=== PATIENT | female | born 1960 | race Caucasian/White ===

== ENCOUNTER 2016-07-13 19:55 | Emergency (ER) | payer OTHER ==
[~2016-07-13] VITALS: Ht 162.6 cm; Wt 90.9 kg
[~2016-07-13 19:55] MED LIST: WARF1TAB6 PO; WARF2.5T82 PO
[2016-07-13 20:04] VITALS: BP 191/99; PULSE 90; RESP 16; O2SAT 100
[2016-07-13 20:22] VITALS: BP 156/56; PULSE 80; RESP 14; O2SAT 100
[2016-07-13 20:29] LABS: BASOPHILS % (AUTO) 0.7 % (0-3); EOSINOPHILS % (AUTO) 3.2 % (0-5); MONOCYTES % (AUTO) 7.8 % (4-12); Mean Corpuscular Hemoglobin 27.5 pg (27.0-35.0); Mean Corpuscular Volume 83.6 fL (81-100); Platelet Count 279 bil/L (150-400)
[2016-07-13 20:58] LABS: TROPONIN T < 0.010 ug/L (0.0-0.011)
--- NOTE | 2016-07-13 21:04 | ED.REPORT ---
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 She also reports swelling of the bilateral lower extremities noticed today. Pain is different from that associated with her prior PE. Associated symptom of dyspnea on exertion. Patient denies nausea, vomiting, and diaphoresis. Nursing Notes Stated Complaint: SWOLLEN ANKLES, SLIGHT CHEST PAIN Chief Complaint: Chest Pain Nursing Notes Reviewed: Yes Allergies: Coded Allergies: No Known Allergies (Verified Allergy, Unknown, 07/13/16) Scheduled Famotidine (Pepcid) 20 Mg Tablet 20 MG PO BID Warfarin Sodium (Warfarin Sodium) 1 Mg Tablet 1.25 MG PO SAT,SAT,SAT Warfarin Sodium (Warfarin Sodium) 2.5 Mg Tablet 2.5 MG PO ,,,SAT General Time Seen by MD: 21:04 Chief Complaint Chest pain Hx Obtained From: Patient Arrived By: Walk-in Sudden in Onset?: No Onset Occurred: 1 week ago Symptom Duration: Since onset Location: : Substernal Quality: Aching Severity: Current: Moderate Severity: Maximum: Moderate Associated with: Reports: Shortness of Breath, Denies: Cough, productive, Diaphoresis, Nausea, Vomiting Context Related History: Reports: Pulmonary embolism Similar Sx Previous: Yes Past Medical History Past Medical History Sleep apnea on CPAP DVT PE Reports: GERD Past Surgical History None Smoking History Never Smoker Social History Alcohol Use: 1-3 per week Review of Systems Constitutional: Denies: Chills, Fever Respiratory: Reports: Dyspnea on exertion, Shortness of breath, Denies: Non-productive cough Cardiovascular: Reports: Chest pain GI: Denies: Nausea, Vomiting Musculoskeletal: Reports: Extremity swelling (Lower, bilateral) Skin: Reports Diaphoresis Complete sys rev & neg: except as marked. Physical Exam Initial Vital Signs Vital Signs (First) Date Time Temp Pulse Resp B/P Pulse Ox O2 Delivery O2 Flow Rate FiO2 07/13/16 20:04 36.0 90 16 191/99 100 Room Air Initial VS: Reviewed Head / Eyes: Atraumatic, Normocephalic Neck: Supple, Non-tender, Full range of motion Skin: Warm, Dry, No cyanosis Neurologic: Alert, Oriented, Nonfocal General/Constitutional: Awake, Alert, No acute distress, Well appearing, Well developed Respiratory / Chest: Breath sounds NL, Breath sounds = bilat, No respiratory distress, No rales, No rhonchi, No wheezing, No stridor, No chest tenderness Cardiovascular: Heart rate NL, Regular rhythm, Heart sounds NL, No murmurs, Peripheral circulation NL, Pulses = bilaterally, No gross BP differential Lower Ext Edema: Positive: Bilateral 1+ Abdomen: Soft, Non-tender, No guarding, No rebound, No distention Interpretation & Diagnostics Lab Results Interpretation Result Diagram: 07/13/16201907/13/162019 Test 07/13/16 20:20 07/13/16 21:40 White Blood Count 8.4th/mm3 (3.8-10.1) Red Blood Count 5.05mil/mm3 (3.90-5.20) Hemoglobin 13.9g/dL (12.0-15.6) Hematocrit 42.2% (35.0-46.0) Mean Corpuscular Volume 83.6fL (81-100) Mean Corpuscular Hemoglobin 27.5pg (27.0-35.0) Mean Corpuscular Hemoglobin Concent 32.9% (32.0-37.0) Red Cell Distribution Width 13.4% (12.3-15.4) Platelet Count 279bil/L (150-400) Neutrophils (%) (Auto) 51.0% (40-74) Lymphocytes (%) (Auto) 37.2% (14-46) Monocytes (%) (Auto) 7.8% (4-12) Eosinophils (%) (Auto) 3.2% (0-5) Basophils (%) (Auto) 0.7% (0-3) Prothrombin Time 19.6sec (8.1-12.5) Prothromb Time International Ratio 1.81ratio Sodium Level 136mEq/L (134-144) Potassium Level 3.6mEq/L (3.5-5.2) Chloride Level 97mEq/L (97-108) Carbon Dioxide Level 23mmol/L (18-29) Blood Urea Nitrogen 14mg/dL (6-24) Creatinine 0.84mg/dL (0.57-1.00) Estimat Glomerular Filtration Rate 101mL/min (>59) Glucose Level 131mg/dL (60-99) Calcium Level 9.3mg/dL (8.5-10.1) Magnesium Level 2.1mg/dL (1.6-2.6) Total Bilirubin 0.4mg/dL (0.0-1.2) Aspartate Amino Transf (AST/SGOT) 20U/L (0-50) Alanine Aminotransferase (ALT/SGPT) 21U/L (0-32) Alkaline Phosphatase 119U/L (25-150) Troponin T < 0.010ug/L (0.0-0.011) Total Protein 7.4g/dL (6.4-8.4) Albumin 4.0g/dL (3.4-5.0) Hold Martinez Top Tube Received (Received) Hold Urine Received (Received) ECG Interpretation ECG Interpretation: Possible old inferior inner wall TN, unchanged from prior Time: 20:18 Interpreted by: ED physician X-Ray Chest Interpretation Chest Xray Interpretation: IMPRESSION: No acute pulmonary process. Dictated by: Erin Brooks M.D. on 07/13/2016 at 21:09 Approved by: Erin Brooks M.D. on 07/13/2016 at 21:09 View: Portable, 1 view Interpretation / Wet Read by: Interpret - Radiologist CT Chest Interpretation CONCLUSION: No evidence of pulmonary embolism or aortic aneurysm or dissection. Slight hiatal hernia. Partially included left renal cyst. No specific acute abnormality. Electronically signed by Katty Brown MD Study type: CT pulm angiogram Interpretation / Wet Read by: Interpret - Radiologist US Focused Lower Ext Venous BILATERAL LOWER EXTREMITY VASCULAR ULTRASOUND IMPRESSION: No evidence of DVT. Mild edema in the left calf. Electronically signed by Katty Brown MD Exam Performed by: [facility] pract Exam Type: Diagnostic Clinical Category: Symptom-based Exam Interpreted by: Radiologist Indication: Leg swelling right, Leg swelling left Re-Eval/Medical Decision Med Decision/Clinical Course 56-year-old with known prior pulmonary embolus presents with some leg edema and mild chest discomfort. Ultrasound negative for DVT. CT angina negative. EKG is unremarkable and enzymes are negative. She is discharged in stable condition for follow-up with PCP. She is mildly under anticoagulated and an additional dose of Coumadin was given. Follow-up for repeat INR on Saturday advised Source of Hx: Old records Time of Eval: 23:17 Re-Evaluation/Progress Note: Discussed INR levels and need for CT pulmonary angiogram. Time of Eval: 03:54 Re-Evaluation/Progress Note: Discussed lab and imaging results and plan to discharge. Patient is amenable to the plan. Return precautions given. All other questions addressed. Counseled Regarding: Diagnosis, Lab results, Need for follow-up, When/why to return to ED Discharge & Departure Primary Impression: Chest pain Additional Impressions: Underdosing of anticoagulant Hypercoagulable state, primary History of hypercoagulable state Disposition: Home Discharge Condition All VS Reviewed: Yes Condition: Stable Patient Instructions: Chest Pain (ED) Additional Instructions: We find no evidence of clot either in your leg or your chest. There does not appear to be a dangerous cause for your discomfort. Begin Pepcid twice daily. Follow-up with your doctor office. Taken extra 5 mg of Coumadin today. Have your INR rechecked early this week Return any time for new symptoms of concern. Referrals: Jacob Claudio MD (PCP) Scribe Attestation Portions of this note were transcribed by Alex Chen. I, Dr. Guerra, personally performed the history, physical exam and medical decision-making; I reviewed and confirmed the accuracy of the information in the transcribed note. Signed by: Soo Holt. 07/14/2016 - 03:54 copies to: Jacob Claudio MD, Christopher W MD Jul 13, 2016 21:04 ALEX CHEN Jul 13, 2016 21:08
[2016-07-13 21:08] LABS: Magnesium 2.1 mg/dL (1.6-2.6)
--- NOTE | 2016-07-13 21:11 | DRSVH ---
PROCEDURE: X-RAY CHEST ONE VIEW, PORTABLE ([id number]) INDICATIONS: CHEST PAIN TECHNIQUE: One view of the chest was acquired. COMPARISON: None. FINDINGS: Surgical changes and devices: None. Lungs and pleura: No pleural effusions or pneumothorax. Lungs are clear. Mediastinum: Mediastinal contours appear normal. Heart size is normal. Bones and chest wall: No suspicious bony lesions. Overlying soft tissues appear unremarkable. IMPRESSION: No acute pulmonary process. Dictated by: Erin Brooks M.D. on 07/13/2016 at 21:09 Approved by: Erin Brooks M.D. on 07/13/2016 at 21:09
[2016-07-13 21:43] LABS: INR 1.81 ratio
[2016-07-13 23:05] VITALS: BP 148/64; PULSE 65; RESP 19; O2SAT 98
[2016-07-14 01:49] VITALS: BP 136/62; PULSE 72; RESP 16; O2SAT 95
[2016-07-14] MEDS ORDERED: FAMO20T PO (03:52)
[2016-07-14 04:35] VITALS: BP 132/66; PULSE 70; RESP 17; O2SAT 96
--- NOTE | 2016-07-14 07:11 | DRSVH ---
PROCEDURE: US VENOUS LEG DUPLEX BILATERAL INDICATIONS: 56-year-old female with bilateral lower extremity swelling. TECHNIQUE: Real-time imaging, as well as color and pulse Doppler interrogation, were performed of the deep veins of both legs from the inguinal ligament to the popliteal fossa. COMPARISON: [facility], US, VEINS EXTREMITY DUPLEX,BIL, 11/17/2014, 12:09. FINDINGS: Preliminary interpretation rendered by [employer] [facility]. The deep veins are normally compressible, and free of intraluminal thrombus. Color and pulse Doppler demonstrate normal phasic intravascular flow. There is normal augmentation response to distal compr ession maneuver. IMPRESSION: No sonographic evidence for lower extremity deep venous thrombosis. No significant discrepancy with preliminary [employer] report. Dictated by: Talib Olivarez M.D. on 07/14/2016 at 7:07 Approved by: Talib Olivarez M.D. on 07/14/2016 at 7:09
--- NOTE | 2016-07-14 10:59 | DRSVH ---
PROCEDURE: CT ANGIO CHEST PULMONARY EMBOLISM ([id number]) INDICATIONS: 56-year-old female with shortness of breath, and history of pulmonary embolism. TECHNIQUE: After the administration of intravenous contrast, 2 mm thick sections acquired from the pulmonary api homa to the posterior costophrenic angles. 3-dimensional maximum intensity projection (MIP) coronal a nd sagittal reformats were then acquired through the thorax. For radiation dose reduction, the follo wing was used: automated exposure control, adjustment of mA and/or kV according to patient size. COMPARISON: [facility], CT, CT ANGIO CHEST PE, 11/17/2014, 1:37. [facility], CT, CHEST ANGIO-PE, 10/20/2013, 2:05. FINDINGS: Preliminary interpretation rendered by [employer]. Image quality: Excellent. Pulmonary arteries: Pulmonary arteries are normal in size, and demonstrate no intraluminal filling d efects to suggest central pulmonary embolism. Lungs and pleura: Lungs are clear, with dependent bronchovascular crowding from incomplete inspirato ry effort. No pleural effusions or pneumothorax. Central and peripheral airways are patent. Mediastinum: Heart size is normal, without pericardial effusion. No mediastinal or hilar adenopathy . Thoracic aorta is normal in caliber and enhancement. Esophagus is normal in caliber, with a small hiatal hernia. Bones and chest wall: No suspicious bony lesions. Ribs and thoracic spine appear intact throughout. Thyroid gland is normal in size. No axillary or supraclavicular adenopathy. Abdomen: 4.8 cm incompletely visualized posterior left renal cortical simple cyst is again noted. O ther visualized upper abdominal solid organs appear normal in the early arterial phase of enhancement . IMPRESSION: 1. No evidence for recurrent pulmonary embolism. 2. Incompletely visualized posterior left renal cortical simple cyst. 3. Small retrocardiac hiatal hernia. No significant discrepancy with preliminary [employer] report. Dictated by: Talib Olivarez M.D. on 07/14/2016 at 10:51 Approved by: Talib Olivarez M.D. on 07/14/2016 at 10:58
== END 2016-07-14 04:36 | disposition home or self-care (01) ==
LOC: SED 19:55
DX: R07.9 Chest pain, unspecified (principal); T45.516A Underdosing of anticoagulants, initial encounter; X58.XXXA Exposure to other specified factors, initial encounter; Y92.9 Unspecified place or not applicable; Y93.9 Activity, unspecified; Y99.9 Unspecified external cause status; D68.59 Other primary thrombophilia; K21.9 Gastro-esophageal reflux disease without esophagitis; Z86.2 Personal history of diseases of the blood and blood-forming organs and certain disorders involving the immune mechanism; Z86.718 Personal history of other venous thrombosis and embolism; Z86.711 Personal history of pulmonary embolism; Z79.01 Long term (current) use of anticoagulants
CPT/HCPCS: 36415; 71010; 71275; 80053; 82948; 83735; 84484; 85025; 85610; 93005; 93970; 96374; 99285; J2250; Q9967